=== PATIENT | female | born 1940 ===

== ENCOUNTER 2025-04-17 06:00 | Day surgery (SDC) | payer OTHER ==
[2025-04-09 13:20] VITALS: BP 140/69
[~2025-04-17] VITALS: Ht 152.4 cm; Wt 49.9 kg
[~2025-04-17 06:00] MED LIST: ATORVASTATIN CA20 MG; CLONAZEPAM1 M1 PO; COZAAR50 MG PO; LANOXIN250 MCG; LEVOTHYROXINE75 MC1 PO
[2025-04-17] MEDS ORDERED: CEFAZOLIN SODIUM 1,000 MG VIAL ONE (06:39)
[2025-04-17] MEDS ORDERED: GENTAMICIN SULFATE 40 MG/ML VIAL ONE (06:57)
[2025-04-17] MEDS ORDERED: EPINEPHRINE HCL/PF 1 MG/ML AMPUL ONE (06:57)
[2025-04-17] MEDS ORDERED: CHLORHEXIDINE GLUCONATE 120 ML BOTTLE TOP ONE (06:58)
[2025-04-17] MEDS ORDERED: LIDOCAINE HCL 1% 20 ML VIAL IJ ONE (06:58)
[2025-04-17] MEDS ORDERED: MACROBID 100 M100 MG PO (12:01)
[2025-04-17] MEDS ORDERED: TRAM1TAB98 PO (12:02)
== END 2025-04-17 14:17 | disposition home or self-care (01) ==
LOC: CIR.AMB 06:00
PROVIDERS: ATTEND Obstetrics & Gynecology Gynecology
DX: N81.5 Vaginal enterocele (principal); N81.6 Rectocele; N81.11 Cystocele, midline